=== PATIENT | female | born 2005 | race Hispanic/Latino ===

== ENCOUNTER 2024-08-20 11:05 | Emergency (ER) | payer BC, OTHER ==
[~2024-08-20] VITALS: Ht 157.5 cm; Wt 62.6 kg
[2024-08-20 11:29] LABS: BASOPHILS # (AUTO) 0.05 K/uL (0.00-0.20); BASOPHILS % (AUTO) 0.6 % (0.0-5.0); EOSINOPHILS # (AUTO) 0.05 K/uL (0.00-0.70); EOSINOPHILS % (AUTO) 0.6 % (0.0-8.0); HEMATOCRIT 39.6 % (36-48); IMMATURE GRANULOCYTE ABSOLUTE 0.03 K/uL (0-1); LYMPHOCYTES # (AUTO) 1.8 K/uL (1.0-4.8); LYMPHOCYTES % (AUTO) 20.7 % (21.0-51.0); MEAN CORPUSCULAR HEMOGLOBIN 26.5 pg (27.0-33.0); MEAN CORPUSCULAR HGB CONC 31.8 g/dL (32.0-36.0); MEAN CORPUSCULAR VOLUME 83.2 fL (80-100); MONOCYTES # (AUTO) 0.5 K/uL (0.1-1.0); MONOCYTES % (AUTO) 5.1 % (3.0-13.0); NEUTROPHILS # (AUTO) 6.5 K/uL (1.8-7.7); NEUTROPHILS % (AUTO) 72.7 % (40.0-77.0); PLATELET COUNT (AUTO) 253 K/uL (130-400); RED BLOOD CELL COUNT(AUTO) 4.76 MIL/uL (4.00-5.50); RED CELL DISTRIBUTION WIDTH 14.3 % (11.0-15.5); WHITE BLOOD COUNT (AUTO) 8.9 K/uL (4.8-10.8)
[2024-08-20 11:38] LABS: CREATININE 0.7 mg/dL (0.5-1.0); POTASSIUM 4.1 mmol/L (3.5-5.1)
--- NOTE | 2024-08-20 12:07 | HMCIMG ---
US OB <14 WEEKS REASON: LLQ abd pain approx 5 weeks r/o ectopic vs torsion vs cyst COMPARISON: None TECHNIQUE: Transvaginal pelvic sonogram was performed. FINDINGS: There is an intrauterine gestational sac. There is no pole or yolk sac. These findings can be normal in the 5-5 1/2 week gestation. Short-term interval sonographic follow-up would be helpful to confirm appearance pole and heartbeat. Both ovaries appear normal. There are no adnexal masses. There is no free fluid in the cul-de-sac. IMPRESSION: 1. Very small gestational sac consistent with a possible 5-5 1/2 week gestation. 2. Short-term interval sonographic follow-up would be helpful to confirm eventual appearance of pole and heartbeat, to better evaluate viability.
[2024-08-20 12:16] LABS: APPEARANCE,URINE CLEAR (CLEAR); BILIRUBIN,URINE NEGATIVE (NEGATIVE); COLOR,URINE YELLOW (YELLOW); GLUCOSE, URINE (UA) NEGATIVE (NEGATIVE); KETONES,URINE NEGATIVE (NEGATIVE); LEUKOCYTE ESTERASE ,URINE NEGATIVE Leu/uL (NEGATIVE); NITRATE,URINE NEGATIVE (NEGATIVE); OCCULT BLOOD,URINE NEGATIVE (NEGATIVE); PROTEIN,URINE NEGATIVE (NEGATIVE); UROBILINOGEN,URINE 0.2 mg/dL (0.2-1.0)
[2024-08-20 12:21] LABS: ADD UA MICROSCOPIC NO
--- NOTE | 2024-08-20 12:56 | ERN ---
General Chief Complaint: Abdominal Pain in Stated Complaint: LEFT LOWER ABDOMINAL PAIN, 5 WEEKS GESTATION Time Seen by MD: 11:09 Time Seen by Midlevel: 11:09 Source: patient History of Present Illness Initial Comments Patient is a 19-year-old female with no significant past medical history presenting to the emergency department with left-sided lower abdominal pain that started three days ago. Patient reports being approximately five weeks . She is a A0. She has a appointment with OBGYN scheduled for September 03. She has not seen her OBGYN and has not had an ultrasound performed at this time. She does report having a history of a ruptured ovarian cyst several years ago. She specifically denies any vaginal bleeding, dysuria, hematuria, fever, chills, or any other symptoms at this time. Allergies: Coded Allergies: No Known Drug Allergies (Unverified Allergy, Unknown, 08/20/24) Past Medical History Past Medical History: No Pertinent History Past Surgical History: None Female( History) LMP: Jul 12, 2024 : 1 Para: 0 ROS Dictation CONSTITUTIONAL: Negative except for HPI HEAD/FACE: Negative except for HPI EENT: Negative except for HPI RESPIRATORY: Negative except for HPI GASTROINTESTINAL/ABDOMINAL: Negative except for HPI GENITOURINARY: Negative except for HPI MUSCULOSKELETAL: Negative except for HPI INTEGUMENTARY: Negative except for HPI NEUROLOGICAL/PSYCH: Negative except for HPI HEMATOLOGIC/LYMPHATIC: Negative except for HPI All Systems Negative, Except as noted above. 13 point review of systems assessed and all negative except for above. Physical Exam Physical Exam Dictation Vital Signs reviewed General Appearance: Alert, oriented x 3, no acute distress, well developed, nourished. Head and Face: non-traumatic. Eyes: PERRL, pink conjunctivas, eyelid no trauma, anterior chamber with arcus senilis. Ears: Pinnas intact and no signs of trauma or erythema ear canals clear and no discharge TM no erythema Nose: No discharge, no bleeding. Oropharynx: Mouth normal, tongue pink, pharynx clear,no erythema, tonsils no exudates, no abscesses noted, mucous membrane moist Neck: Supple, non-tender, no thyromegaly, no masses, no JVD, no bruits Breast:Deferred Chest:No tenderness, no crepitus, no paradoxical movement, no retractions Lungs:Clear, well-ventilated, symmetric, no rales, no wheezing, no rhonchi, no stridor, good breath sounds bilaterally Heart: Regular rate, regular rhythm, no murmur, no gallops Vascular: no peripheral edema, Abdomen: Soft, positive bowel sounds, nondistended, no guarding, nontender, no rebound, no masses no hepatomegaly, no splenomegaly, no Lara's sign, no hernias. Rectal: Deferred Genital: Deferred Neurological: Normal speech, motor function intact, sensory function intact Musculoskeletal: Neck nontender, full range of motion, back nontender, full range of motion, Extremities: nontender, full range of motion Skin: Color pink, dry, no turgor, no rash, no lacerations, no abrasions, no contusions. Lymphatic: Deferred Results Laboratory and Microbiology Lab and Micro Result Laboratory Tests Test 08/20/24 11:21 08/20/24 11:34 White Blood Count 8.9 K/uL (4.8-10.8) Red Blood Count 4.76 MIL/uL (4.00-5.50) Hemoglobin 12.6 g/dL (12.0-16.0) Hematocrit 39.6 % (36-48) Mean Corpuscular Volume 83.2 fL (80-100) Mean Corpuscular Hemoglobin 26.5 pg (27.0-33.0) L Mean Corpuscular Hemoglobin Concent 31.8 g/dL (32.0-36.0) L Red Cell Distribution Width 14.3 % (11.0-15.5) Platelet Count 253 K/uL (130-400) Mean Platelet Volume 11.3 fL (7.5-10.5) H Immature Granulocyte % (Auto) 0.3 % (0-1) Neutrophils (%) (Auto) 72.7 % (40.0-77.0) Lymphocytes (%) (Auto) 20.7 % (21.0-51.0) L Monocytes (%) (Auto) 5.1 % (3.0-13.0) Eosinophils (%) (Auto) 0.6 % (0.0-8.0) Basophils (%) (Auto) 0.6 % (0.0-5.0) Neutrophils # (Auto) 6.5 K/uL (1.8-7.7) Lymphocytes # (Auto) 1.8 K/uL (1.0-4.8) Monocytes # (Auto) 0.5 K/uL (0.1-1.0) Eosinophils # (Auto) 0.05 K/uL (0.00-0.70) Basophils # (Auto) 0.05 K/uL (0.00-0.20) Absolute Immature Granulocyte (auto 0.03 K/uL (0-1) Nucleated Red Blood Cells 0.0 % (0.0-0.19) Sodium Level 140 mmol/L (136-145) Potassium Level 4.1 mmol/L (3.5-5.1) Chloride Level 107 mmol/L (101-111) Carbon Dioxide Level 25 mmol/L (21-32) Blood Urea Nitrogen 10 mg/dL (7-18) Creatinine 0.7 mg/dL (0.5-1.0) Glomerular Filtration Rate Calc 127 mL/min (>90) Random Glucose 112 mg/dL (70-105) H Total Calcium 9.6 mg/dL (8.5-10.1) Human Chorionic Gonadotropin, Quant 64477 mIU/mL (0-5) H Urine Color YELLOW (YELLOW) Urine Appearance CLEAR (CLEAR) Urine pH 6.0 (5.0-8.0) Urine Specific [place] 1.018 (1.001-1.031) Urine Protein NEGATIVE mg/dL (NEGATIVE) Urine Glucose (UA) NEGATIVE mg/dL (NEGATIVE) Urine Ketones NEGATIVE mg/dL (NEGATIVE) Urine Occult Blood NEGATIVE (NEGATIVE) Urine Nitrate NEGATIVE (NEGATIVE) Urine Bilirubin NEGATIVE mg/dL (NEGATIVE) Urine Urobilinogen 0.2 mg/dL (0.2-1.0) Urine Leukocyte Esterase NEGATIVE Kofi/uL Labs Reviewed?: Yes MDM MDM: Patient is a 19-year-old female with no significant past medical history presenting to the emergency department with left-sided lower abdominal pain that started three days ago. Patient reports being approximately five weeks . She is a A0. She has a appointment with OBGYN scheduled for September 03. She has not seen her OBGYN and has not had an ultrasound performed at this time. She does report having a history of a ruptured ovarian cyst several years ago. She specifically denies any vaginal bleeding, dysuria, hematuria, fever, chills, or any other symptoms at this time. On physical examination patient is in no acute distress. Vital signs are stable. Her CBC does not show any leukocytosis. [place] [id number]. Her urine does not show any evidence of infection. Pelvic ultrasound reveals a very small gestational sac consistent with a possible five 5-5 1/2 week gestation. There was no evidence of ectopic . There was no free fluid in the cul-de-sac. Ectopic ectopic less likely at this time. I did advised that a short term ultrasound follow up would be helpful to confirm a appearance of pole and heartbeat to better evaluate viability. Patient s sara she will be following up with her OBGYN later this month. A copy of her ultrasound report along with her hCG quant was given to the patient. Return precautions were discussed. Differential diagnosis: 1st trimester , ectopic , urinary tract infection There are no social concerns with this patient. Prescription drug management Prescriptions will include: None Medical management and examination interpretation discussions were had by me with other qualified healthcare professionals as indicated for the patient's care. ED Course Orders Procedure Category Date Status Time Cbc With Differential LAB 08/20/24 Complete 11:09 Basic Metabolic Panel LAB 08/20/24 Complete 11:09 Hcg,Quantitative LAB 08/20/24 Complete 11:09 Urinalysis Profile LAB 08/20/24 Complete 11:09 Us Ob <14 Weeks US 08/20/24 Resulted 11:09 Vital Signs Date Time Temp Pulse Resp B/P (MAP) Pulse Ox O2 Delivery O2 Flow Rate FiO2 08/20/24 12:57 98.2 95 16 145/75 98 Room Air* 0 21 08/20/24 11:39 98.2 112 16 150/80 98 Room Air* 0 21 08/20/24 11:07 98.6 118 20 159/86 100 Room Air 0 [facility] [address] [place] [id number] IMAGING REPORT Signed PATIENT: SILVIA SCHULZ MR#: [id number] : 2005 SEX: F AGE: 19 LOCATION: [facility] ORDER 1110 STATUS: REG ER REPORT#: [id number] SERVICE [id number] REASON: LLQ abd pain approx 5 weeks r/o ectopic vs torsion vs cyst ORDERING PHYSICIAN: NATALEE SANDS PROCEDURE: OB <14 - US OB <14 WEEKS US OB <14 WEEKS REASON: LLQ abd pain approx 5 weeks r/o ectopic vs torsion vs cyst COMPARISON: None TECHNIQUE: Transvaginal pelvic sonogram was performed. FINDINGS: There is an intrauterine gestational sac. There is no pole or yolk sac. These findings can be normal in the 5-5 1/2 week gestation. Short-term interval sonographic follow-up would be helpful to confirm appearance pole and heartbeat. Both ovaries appear normal. There are no adnexal masses. There is no free fluid in the cul-de-sac. IMPRESSION: 1. Very small gestational sac consistent with a possible 5-5 1/2 week gestation. 2. Short-term interval sonographic follow-up would be helpful to confirm eventual appearance of pole and heartbeat, to better evaluate viability. DICTATED BY: MILLICENT YBARRA MD DATE: 08/20/24 120 ELECTRONICALLY SIGNED BY: MILLICENT YBARRA MD DATE: 08/20/24 120 DX & DISP Disposition: Discharge Departure Impression: Primary Impression: First trimester Condition: Stable Additional Instructions: Your blood work today [place] [id number]. Your pelvic ultrasound shows a very small gestational sac consistent with a possible 5-5-1/2 week gestation. There was no pole or heartbeat seen at this time. Your recommend you follow up with your OBGYN for repeat hCG testing and repeat ultrasound. Return to the emergency department for any new or worsening symptoms. Time of Disposition: 12:55 I have reviewed the case, and I agree with, Diagnosis and Plan I performed the substantive portion of the visit. I have reviewed and personally made and approve the management plan that is documented in the note by myself or the JOSEE. I acknowledge for responsibility for the patient's management plan. NATALEE SANDS Aug 20, 2024 12:56
[2024-08-20 12:57] VITALS: BP 145/75; PULSE 95; RESP 16; TEMP 98.3; O2SAT 98
--- NOTE | 2024-08-20 13:03 | NUR ---
DC DELAY DUE TO REGISTRATION
== END 2024-08-20 13:12 | disposition home or self-care (01) ==
LOC: EDH 11:05
DX: O26.891 Other specified pregnancy related conditions, first trimester (principal); R10.32 Left lower quadrant pain; R10.2 Pelvic and perineal pain; Z3A.01 Less than 8 weeks gestation of pregnancy
CPT/HCPCS: 36415; 76801; 80048; 81003; 84702; 85025; 99284

== ENCOUNTER 2025-08-21 19:51 | Emergency (ER) | payer BC, MEDICAID ==
[~2025-08-21] VITALS: Ht 157.5 cm; Wt 67.6 kg
[2025-08-21 19:52] VITALS: BP 110/90; PULSE 122; RESP 20; TEMP 97.9
--- NOTE | 2025-08-21 19:56 | NUR ---
COVID, FLU AND STREP COLLECTED AND SENT
--- NOTE | 2025-08-21 19:57 | NUR ---
UA CUP PROVIDED
[2025-08-21] MEDS ORDERED: 0.9%NACL 1000ML 1,000 ML IV ONE (20:30)
[2025-08-21 20:54] LABS: APPEARANCE,URINE CLOUDY (CLEAR); GLUCOSE, URINE (UA) NEGATIVE (NEGATIVE); LEUKOCYTE ESTERASE ,URINE 250 Leu/uL (NEGATIVE); NITRATE,URINE NEGATIVE (NEGATIVE); OCCULT BLOOD,URINE LARGE (NEGATIVE)
[2025-08-21 20:55] LABS: IMMATURE GRANULOCYTE ABSOLUTE 0.03 K/uL (0-1); NUCLEATED RED BLOOD CELLS 0.0 % (0.0-0.19); PLATELET COUNT (AUTO) 281 K/uL (130-400); RED BLOOD CELL COUNT(AUTO) 4.91 MIL/uL (4.00-5.50); RED CELL DISTRIBUTION WIDTH 17.1 % (11.0-15.5); WHITE BLOOD COUNT (AUTO) 8.0 K/uL (4.8-10.8)
[2025-08-21 20:56] LABS: ADD UA MICROSCOPIC YES
[2025-08-21 20:58] LABS: SQUAMOUS EPITHELIAL CELL,UR FEW /HPF (0-2)
[2025-08-21 21:02] LABS: RAPID GROUP A STREP negative (NEGATIVE)
[2025-08-21 21:04] LABS: CREATININE 0.6 mg/dL (0.5-1.0); GLOMERULAR FILTR. RATE CALC 131.0 mL/min (>90); GLUCOSE,RANDOM 108.0 mg/dL (70-105); SODIUM SERUM 137.0 mmol/L (136-145); UREA NITROGEN, BLOOD 10.0 mg/dL (7-18)
[2025-08-21 21:07] LABS: SARS-CoV-2, RNA, NAAT NEGATIVE SARS CoV-2 (NEGATIVE)
[2025-08-21 21:12] LABS: INFLUENZA TYPE A Negative For Type A (NEGATIVE); INFLUENZA TYPE B Negative For Type B (NEGATIVE)
[2025-08-21] MEDS ORDERED: ONDA-243 PO (22:33)
[2025-08-21] MEDS ORDERED: MACR100 PO (22:33)
--- NOTE | 2025-08-21 22:36 | ERN ---
General Chief Complaint: Flu Symptoms Stated Complaint: FEVER, N/V/D Time Seen by MD: 20:28 Time Seen by Midlevel: 20:28 Source: patient History of Present Illness Initial Comments 20-year-old female presents to the emergency department for evaluation of nausea, vomiting, and diarrhea that started two days ago. She also reports a subjective fever. She states her son has been sick with vomiting and diarrhea and was diagnosed with norovirus. Patient also reports mild urinary frequency and dysuria. Allergies: Coded Allergies: No Known Drug Allergies (Unverified Allergy, Unknown, 08/20/24) Past Medical History Past Medical History: No Pertinent History Past Surgical History: None Female( History) LMP: Aug 02, 2025 : 1 Para: 0 ROS Dictation CONSTITUTIONAL: Negative except for HPI HEAD/FACE: Negative except for HPI EENT: Negative except for HPI RESPIRATORY: Negative except for HPI GASTROINTESTINAL/ABDOMINAL: Negative except for HPI GENITOURINARY: Negative except for HPI MUSCULOSKELETAL: Negative except for HPI INTEGUMENTARY: Negative except for HPI NEUROLOGICAL/PSYCH: Negative except for HPI HEMATOLOGIC/LYMPHATIC: Negative except for HPI All Systems Negative, Except as noted above. 13 point review of systems assessed and all negative except for above. Physical Exam Physical Exam Dictation Vital Signs reviewed General Appearance: Alert, oriented x 3, no acute distress, well developed, nourished. Head and Face: non-traumatic. Eyes: PERRL, pink conjunctivas, eyelid no trauma, anterior chamber with arcus senilis. Ears: Pinnas intact and no signs of trauma or erythema ear canals clear and no discharge TM no erythema Nose: No discharge, no bleeding. Oropharynx: Mouth normal, tongue pink, pharynx clear,no erythema, tonsils no exudates, no abscesses noted, mucous membrane moist Neck: Supple, non-tender, no thyromegaly, no masses, no JVD, no bruits Breast:Deferred Chest:No tenderness, no crepitus, no paradoxical movement, no retractions Lungs:Clear, well-ventilated, symmetric, no rales, no wheezing, no rhonchi, no stridor, good breath sounds bilaterally Heart: Regular rate, regular rhythm, no murmur, no gallops Vascular: no peripheral edema, Abdomen: Soft, positive bowel sounds, nondistended, no guarding, nontender, no rebound, no masses no hepatomegaly, no splenomegaly, no Lara's sign, no hernias. Rectal: Deferred Genital: Deferred Neurological: Normal speech, motor function intact, sensory function intact Musculoskeletal: Neck nontender, full range of motion, back nontender, full range of motion, Extremities: nontender, full range of motion Skin: Color pink, dry, no turgor, no rash, no lacerations, no abrasions, no contusions. Lymphatic: Deferred Results Laboratory and Microbiology Lab and Micro Result Laboratory Tests Test 08/21/25 20:35 08/21/25 20:37 White Blood Count 8.0 K/uL (4.8-10.8) Red Blood Count 4.91 MIL/uL (4.00-5.50) Hemoglobin 10.0 g/dL (12.0-16.0) L Hematocrit 34.8 % (36-48) L Mean Corpuscular Volume 70.9 fL (80-100) L Mean Corpuscular Hemoglobin 20.4 pg (27.0-33.0) L Mean Corpuscular Hemoglobin Concent 28.7 g/dL (32.0-36.0) L Red Cell Distribution Width 17.1 % (11.0-15.5) H Platelet Count 281 K/uL (130-400) Mean Platelet Volume 11.9 fL (7.5-10.5) H Immature Granulocyte % (Auto) 0.4 % (0-1) Neutrophils (%) (Auto) 86.2 % (40.0-77.0) H Lymphocytes (%) (Auto) 9.2 % (21.0-51.0) L Monocytes (%) (Auto) 3.6 % (3.0-13.0) Eosinophils (%) (Auto) 0.1 % (0.0-8.0) Basophils (%) (Auto) 0.5 % (0.0-5.0) Neutrophils # (Auto) 6.9 K/uL (1.8-7.7) Lymphocytes # (Auto) 0.7 K/uL (1.0-4.8) L Monocytes # (Auto) 0.3 K/uL (0.1-1.0) Eosinophils # (Auto) 0.01 K/uL (0.00-0.70) Basophils # (Auto) 0.04 K/uL (0.00-0.20) Absolute Immature Granulocyte (auto 0.03 K/uL (0-1) Nucleated Red Blood Cells 0.0 % (0.0-0.19) White Cell Morphology Comment See comments Red Blood Cell Morphology See comments Sodium Level 137 mmol/L (136-145) Potassium Level 3.3 mmol/L (3.5-5.1) L Chloride Level 102 mmol/L (101-111) Carbon Dioxide Level 25 mmol/L (21-32) Blood Urea Nitrogen 10 mg/dL (7-18) Creatinine 0.6 mg/dL (0.5-1.0) Glomerular Filtration Rate Calc 131 mL/min (>90) Random Glucose 108 mg/dL (70-105) H Total Calcium 8.7 mg/dL (8.5-10.1) Influenza Type A Antigen Negative For Type A Influenza Type B Antigen Negative For Type B SARS-CoV-2, RNA, NAAT NEGATIVE SARS CoV-2 Group A Streptococcus Rapid negative (NEGATIVE) Urine Color LIGHT-YELLOW (YELLOW) Urine Appearance CLOUDY (CLEAR) H Urine pH 5.5 (5.0-8.0) Urine Specific [place] 1.007 (1.001-1.031) Urine Protein NEGATIVE mg/dL (NEGATIVE) Urine Glucose (UA) NEGATIVE mg/dL (NEGATIVE) Urine Ketones NEGATIVE mg/dL (NEGATIVE) Urine Occult Blood LARGE (NEGATIVE) H Urine Nitrate NEGATIVE (NEGATIVE) Urine Bilirubin NEGATIVE mg/dL (NEGATIVE) Urine Urobilinogen 0.2 mg/dL (0.2-1.0) Urine Leukocyte Esterase 250 Kofi/uL (NEGATIVE) H Urine RBC 6-10 /HPF (0-1) H Urine WBC 11-25 /HPF (0-1) H Urine Squamous Epithelial Cells FEW /HPF (0-2) Urine Bacteria RARE /HPF (None Seen) Urine HCG, Qualitative NEGATIVE (NEGATIVE) Labs Reviewed?: Yes MDM MDM: Differential diagnosis: Urinary tract infection, dehydration, electrolyte abnormality, viral syndrome, viral gastroenteritis There are no social concerns with this patient. Prescription drug management Prescriptions will include: Macrobid, Zofran Medical management and examination interpretation discussions were had by me with other qualified healthcare professionals as indicated for the patient's care. ED Course Orders Procedure Category Date Status Time Urinalysis Profile LAB 08/21/25 Complete 19:54 Covid Rna Naat LAB 08/21/25 Complete 19:54 Influenza Type A & B, LAB 08/21/25 Complete Rapid 19:54 Rapid (Group A Strep) LAB 08/21/25 Complete 19:54 ,Urine Test LAB 08/21/25 Complete 19:57 Cbc With Differential LAB 08/21/25 Complete 20:28 Basic Metabolic Panel LAB 08/21/25 Complete 20:28 0.9%Nacl 1000ml (Ns PHA 08/21/25 Complete 1000ml) 20:30 Culture Urine [place] 08/21/25 In Process 20:57 Current Medications Medications (Trade) Dose Ordered Sig/Yoselyn Route PRN Reason Start Time Stop Time Status Last Admin Dose Admin Sodium Chloride 1,000 ml @ 0 mls/hr ONCE ONCE IV 08/21/25 20:30 08/21/25 20:31 DC Vital Signs Date Time Temp Pulse Resp B/P (MAP) Pulse Ox O2 Delivery O2 Flow Rate FiO2 08/21/25 19:52 97.9 122 20 110/90 99 Room Air DX & DISP Disposition: Discharge Departure Impression: Primary Impression: Urinary tract infection Additional Impressions: Hypokalemia, Viral gastroenteritis Condition: Stable Scripts Ondansetron (Ondansetron Odt) 4 Mg Tab.rapdis 4 MG PO BID for 7 Days, #14 TAB Prov: NATALEE SANDS PAC 08/21/25 Nitrofurantoin/Nitrofuran Mac (Macrobid) 100 Mg Cap 1 CAP PO BID for 5 Days, #10 CAP 0 Refills Prov: NATALEE SANDS PAC 08/21/25 Referrals: MARISOL RIOS HR ADMINISTRATIVE ASSISTANT (PCP) I have reviewed the case, and I agree with, Diagnosis and Plan I performed the substantive portion of the visit. I have reviewed and personally made and approve the management plan that is documented in the note by myself or the JOSEE. I acknowledge for responsibility for the patient's management plan. NATALEE SANDS PAC Aug 21, 2025 22:36
== END 2025-08-21 23:45 | disposition home or self-care (01) ==
LOC: EDH 19:51
DX: N39.0 Urinary tract infection, site not specified (principal); E87.6 Hypokalemia; A08.4 Viral intestinal infection, unspecified; R11.2 Nausea with vomiting, unspecified; Z20.822 Contact with and (suspected) exposure to COVID-19
CPT/HCPCS: 99283; 87635; 80048; 85025; 87086; 87880; 87804 ×2; 81001; 81025; 36415; 96372; J0696; 99284